=== PATIENT | female | born 1945 | race Caucasian/White ===

== ENCOUNTER → 2016-09-19 | Outpatient (CLI) | payer MEDICARE ==
[2005-10-23 09:00] VITALS: TEMP 99
[~2016-09-19] MED LIST: CALCIUM + D 5001 TAB PO; LOPRESSOR50 MG PO; MAXALT MLT5 MG PO; MUCINEX 60600 MG/TA1 PO; MULTI VITAMIN; SINGULAIR10 MG PO; VYTORIN 10 MG-21 TAB PO; ZYRTEC10 MG PO
== END ==
LOC: MC.RAD 10:27
DX: Z12.31 Encounter for screening mammogram for malignant neoplasm of breast (principal)

== ENCOUNTER → 2016-10-28 | Outpatient (CLI) | payer MEDICARE ==
[2005-10-23 09:00] VITALS: TEMP 99
== END ==
LOC: COL.VAS 09:39
DX: R07.9 Chest pain, unspecified (principal)

== ENCOUNTER → 2017-04-08 | Outpatient (CLI) | payer MEDICARE ==
[2005-10-23 09:00] VITALS: TEMP 99
== END ==
LOC: COL.RAD 08:00
DX: K44.9 Diaphragmatic hernia without obstruction or gangrene (principal); K21.9 Gastro-esophageal reflux disease without esophagitis

== ENCOUNTER → 2017-12-15 | Outpatient (CLI) | payer MEDICARE ==
[2005-10-23 09:00] VITALS: TEMP 99
== END ==
LOC: MC.RAD 13:20
DX: Z12.31 Encounter for screening mammogram for malignant neoplasm of breast (principal)

== ENCOUNTER → 2018-03-10 | Outpatient (CLI) | payer MEDICARE ==
[~2018-03-10] MED LIST changes: -CALCIUM + D 5001 TAB PO; +CALCIUM CARBON650 M2 PO; +CELEXA 20MG20 MG/TAB PO; +CIPRO 500MG TA500 MG PO; +FLAGYL500 MG PO; +MULTI VITAMINS1 TAB PO; +PRIL40 PO; +PROAIR HFA0.09 MG/AC IH; +SINGULAIR 110 MG/TAB PO; -SINGULAIR10 MG PO; +SYNTHROID0.075 MG/T PO; +TRICOR 48MG48 MG PO; +VITAMIN D31000 I1 PO; +ZANTAC 7575 MG PO; +ZETIA 10MG TAB10 MG PO
== END ==
LOC: COL.RAD 16:42
DX: K57.92 Diverticulitis of intestine, part unspecified, without perforation or abscess without bleeding (principal); K50.10 Crohn's disease of large intestine without complications

== ENCOUNTER → 2018-09-02 | Outpatient (CLI) | payer MEDICARE | LOC: COL.RAD 07:53 | DX: K57.30 Diverticulosis of large intestine without perforation or abscess without bleeding (principal); K56.699 Other intestinal obstruction unspecified as to partial versus complete obstruction ==

== ENCOUNTER 2018-10-07 15:47 | Inpatient (IN) | payer MEDICARE ==
[~2018-10-07] VITALS: Ht 154.9 cm; Wt 72.5 kg
[~2018-10-07 15:47] MED LIST changes: +ZYRTEC 10MG10 MG PO; -ZYRTEC10 MG PO
[2018-10-28] VITALS (9 sets, daily range): BP systolic 115–137; BP diastolic 42–76; PULSE 70–95; TEMP 97.8–98.5
[2018-10-28] MEDS ORDERED: CALCIUM 600MG+D1 TAB PO (11:25)
[2018-10-28 11:48] LABS: HEMATOCRIT 44.8 % (37.0-47.0); HEMOGLOBIN 14.8 g/dl (12.5-16.0); MEAN CELL VOLUME 95 fl (80.0-100.0); MEAN CORPUSCULAR HEMOGLOBIN 31 pg (27.0-31.0); MEAN CORPUSCULAR HGB CONC 33 g/dl (33.0-37.0); MEAN PLATELET VOLUME 11.7 fl (7.4-10.4); PLATELET COUNT 256 K/mm3 (130-400); RED BLOOD COUNT 4.71 M/mm3 (4.10-5.30); REDCELL DISTRIBUTION WIDTH-CV 14.2 % (11.5-14.5)
[2018-10-28 11:57] LABS: CALCIUM 9.1 mg/dL (8.4-10.2); CREATININE, serum 0.71 (0.52-1.25); POTASSIUM 4.1 mmol/L (3.4-5.0)
[2018-10-29 00:16] VITALS: BP 132/51; PULSE 86; TEMP 98.1
[2018-10-29 04:36] VITALS: BP 125/55; PULSE 95; TEMP 98.8
[2018-10-29 07:57] LABS: HEMATOCRIT 40.8 % (37.0-47.0); HEMOGLOBIN 13.7 g/dl (12.5-16.0)
[2018-10-29 08:05] VITALS: BP 105/43; PULSE 89; TEMP 99.1
[2018-10-29 08:10] LABS: CALCIUM 8.7 mg/dL (8.4-10.2); CREATININE, serum 0.79 (0.52-1.25); MAGNESIUM 1.9 mg/dL (1.6-2.3); PHOSPHOROUS 3.1 mg/dL (2.5-4.5); POTASSIUM 4.3 mmol/L (3.4-5.0)
[2018-10-29 12:23] VITALS: BP 120/48; PULSE 94; TEMP 98.2
[2018-10-29 15:56] VITALS: BP 111/47; PULSE 87; TEMP 97.4
[2018-10-29 20:47] VITALS: BP 117/48; PULSE 93; TEMP 98.6
[2018-10-30] VITALS (8 sets, daily range): BP systolic 102–136; BP diastolic 42–60; PULSE 71–96; TEMP 98–99.3
[2018-10-31 03:49] VITALS: BP 122/58; PULSE 74; TEMP 98.3
[2018-10-31 09:52] VITALS: BP 150/74; PULSE 73; TEMP 97.8
== END 2018-10-31 11:43 | disposition home or self-care (01) | DRG 330 ==
LOC: SURG 10-28 09:00 → INPTSU 10-28 10:29 → SURG 10-28 10:30 → JCC 10-28 19:31
PROVIDERS: ADMIT Surgery
PROC: 0DTN4ZZ Resection of Sigmoid Colon, Percutaneous Endoscopic Approach (ICD-10-PCS; principal; 2018-10-29)
PROC: 0DNU4ZZ Release Omentum, Percutaneous Endoscopic Approach (ICD-10-PCS; 2018-10-29)
PROC: 0DNW4ZZ Release Peritoneum, Percutaneous Endoscopic Approach (ICD-10-PCS; 2018-10-29)
PROC: 0DNN4ZZ Release Sigmoid Colon, Percutaneous Endoscopic Approach (ICD-10-PCS; 2018-10-29)
DX: K57.32 Diverticulitis of large intestine without perforation or abscess without bleeding (principal); K56.699 Other intestinal obstruction unspecified as to partial versus complete obstruction; E78.00 Pure hypercholesterolemia, unspecified; J45.909 Unspecified asthma, uncomplicated; Z90.710 Acquired absence of both cervix and uterus; Z88.2 Allergy status to sulfonamides; Z88.9 Allergy status to unspecified drugs, medicaments and biological substances
CPT/HCPCS: A4314; A9284; J0690; J1100; J1650; J1885; J2250; J2370; J2405; J2543; J2550; J2704; J7120

== ENCOUNTER → 2018-12-28 | Outpatient (CLI) | payer MEDICARE ==
[~2018-12-28] MED LIST changes: +CALCIUM 600MG+D1 TAB PO
== END ==
LOC: MC.RAD 10:10
DX: Z12.31 Encounter for screening mammogram for malignant neoplasm of breast (principal)

== ENCOUNTER 2019-12-28 09:58 | Outpatient (CLI) | payer MEDICARE | END 2019-12-29 | LOC: COL.RAD | DX: K82.8 Other specified diseases of gallbladder (principal) | CPT/HCPCS: A9537; J2805 ==

== ENCOUNTER → 2019-12-30 | Outpatient (CLI) | payer MEDICARE | LOC: MC.RAD 13:39 | DX: Z12.31 Encounter for screening mammogram for malignant neoplasm of breast (principal) ==

== ENCOUNTER 2020-01-14 05:37 | Day surgery (SDC) | payer MEDICARE ==
[~2020-01-14] VITALS: Ht 154.9 cm; Wt 73.0 kg
[~2020-01-14 05:37] MED LIST changes: +BENADRYL25 M2 PO; -MAXALT MLT5 MG PO; +MAXALT10 MG PO; -MULTI VITAMINS1 TAB PO; +ONE-A-DAY ESSE1 EACH PO; -ZYRTEC 10MG10 MG PO
[2020-01-14] MEDS ORDERED: PROTONIX 40MG T40 MG PO (06:21)
[2020-01-14] MEDS ORDERED: TRICOR 48MG48 MG PO (06:21)
[2020-01-14] MEDS ORDERED: NORCO 325 MG-51 TAB PO (06:22)
[2020-01-14] MEDS ORDERED: PHARMASSURE ZIN50 MG PO (06:23)
[2020-01-14 06:43] VITALS: BP 139/59; PULSE 74; TEMP 97.1
[2020-01-14 09:35] VITALS: BP 132/82; PULSE 90; TEMP 98.4
--- NOTE | 2020-01-14 09:35 | NUR ---
Patient arrives back from PACU at this time. Patient is drowsy, denies pain or nausea. Patient monitor applied, vitals stable. Patient has 4 incision sites across upper abdomen. Oxygen intact, IV infusing. Patient resting comfortably on cart with spouse at bedside.
[2020-01-14 09:45] VITALS: BP 132/57; PULSE 80
--- NOTE | 2020-01-14 09:50 | NUR ---
Patient starting to wake up more and reports that her throat feels sore. Patient given ice chips.
[2020-01-14 10:00] VITALS: BP 120/50; PULSE 77
--- NOTE | 2020-01-14 10:15 | NUR ---
Patient resting on cart comfortably. Patient given crackers and water.
[2020-01-14 10:30] VITALS: BP 130/51; PULSE 79
--- NOTE | 2020-01-14 10:50 | NUR ---
Patient reports slight pain in her abdomen. Patient offered a PRN pain pill medications and she reports she would like to take one.
--- NOTE | 2020-01-14 11:10 | NUR ---
Patient up to restroom at this time and is able to urinate without any complications.
--- NOTE | 2020-01-14 11:15 | NUR ---
Patient reports pain is much better/tolerable and thanks staff for all their services.
--- NOTE | 2020-01-14 11:20 | NUR ---
Patient discharged to patient enterance via wheelchair to private vehicle that her is driving. Patient and spouse leave thanking staff for services!
== END 2020-01-14 11:20 | disposition home or self-care (01) ==
LOC: SDCO
DX: K81.1 Chronic cholecystitis (principal); J45.909 Unspecified asthma, uncomplicated; E78.00 Pure hypercholesterolemia, unspecified; E03.9 Hypothyroidism, unspecified; R32 Unspecified urinary incontinence; G43.909 Migraine, unspecified, not intractable, without status migrainosus; F32.9 Major depressive disorder, single episode, unspecified; M79.7 Fibromyalgia; Z90.49 Acquired absence of other specified parts of digestive tract; Z20.828 Contact with and (suspected) exposure to other viral communicable diseases; Z86.19 Personal history of other infectious and parasitic diseases; Z87.19 Personal history of other diseases of the digestive system; Z80.3 Family history of malignant neoplasm of breast; Z83.3 Family history of diabetes mellitus; Z82.49 Family history of ischemic heart disease and other diseases of the circulatory system; Z79.899 Other long term (current) drug therapy; Z88.2 Allergy status to sulfonamides; Z88.8 Allergy status to other drugs, medicaments and biological substances; Z91.041 Radiographic dye allergy status; Z91.040 Latex allergy status
CPT/HCPCS: J0690; J1100; J2405; J2704; J2710; J3010; J7120

== ENCOUNTER → 2021-09-10 | Outpatient (CLI) | payer MEDICARE ==
[~2021-09-10] MED LIST changes: +NORCO 325 MG-51 TAB PO; +PHARMASSURE ZIN50 MG PO; +PROTONIX 40MG T40 MG PO
== END ==
LOC: MC.RAD 10:52
DX: Z12.31 Encounter for screening mammogram for malignant neoplasm of breast (principal); N64.89 Other specified disorders of breast

== ENCOUNTER → 2021-09-14 | Outpatient (CLI) | payer MEDICARE | LOC: MC.RAD 10:58 | DX: N63.22 Unspecified lump in the left breast, upper inner quadrant (principal) ==

== ENCOUNTER → 2021-09-19 | Outpatient (CLI) | payer MEDICARE | LOC: MC.RAD 09:49 | DX: N63.20 Unspecified lump in the left breast, unspecified quadrant (principal) ==

== ENCOUNTER → 2021-11-01 | Outpatient (CLI) | payer MEDICARE | LOC: COL.RAD 10:42 | DX: R22.1 Localized swelling, mass and lump, neck (principal) ==

== ENCOUNTER → 2021-11-22 | Outpatient (CLI) | payer MEDICARE | LOC: COL.RAD 13:00 | DX: R22.1 Localized swelling, mass and lump, neck (principal) ==

== ENCOUNTER 2021-12-06 15:04 | Emergency (ER) | payer MEDICARE ==
[~2021-12-06] VITALS: Ht 154.9 cm; Wt 71.8 kg
[2021-12-06 15:13] VITALS: TEMP 97.2
[2021-12-06 15:56] LABS: BASO # 0.1 K/mm3 (0.0-0.2); BASO % 1.1 % (0.0-2.0); EOS # 0.1 K/mm3 (0.0-0.7); EOS % 2.6 % (0.0-4.0); GRAN # 4.2 K/mm3 (1.4-6.5); GRAN % 78.1 % (42.2-75.2); HEMATOCRIT 46.2 % (37.0-47.0); HEMOGLOBIN 15.1 g/dl (12.5-16.0); LYMPH # 0.5 K/mm3 (1.2-3.4); LYMPH % 9.7 % (20.0-51.0); MEAN CELL VOLUME 92 fl (80.0-100.0); MEAN CORPUSCULAR HEMOGLOBIN 30 pg (27-31); MEAN CORPUSCULAR HGB CONC 33 g/dl (33.0-37.0); MEAN PLATELET VOLUME 11.8 fl (7.4-10.4); MONO # 0.4 K/mm3 (0.1-0.6); MONO % 7.4 % (1.7-9.3); PLATELET COUNT 334 K/mm3 (130-400); REDCELL DISTRIBUTION WIDTH-CV 14.9 % (11.5-14.5)
[2021-12-06 16:11] LABS: ALANINE AMINOTRANSFERASE 21 U/L (0-55); ALBUMIN 3.8 gm/dL (3.4-4.8); ALKALINE PHOSPHATASE 64 U/L (40-150); ANION GAP 11 mmol/L (7-16); AST,SGOT 30 U/L (5-34); BILIRUBIN,TOTAL 0.5 mg/dL (0.2-1.2); BLOOD UREA NITROGEN 13 mg/dL (10-20); CARBON DIOXIDE 22 mmol/L (23-31); CHLORIDE 106 mmol/L (98-107); CREATININE, serum 0.94 mg/dL (0.57-1.11); GLUCOSE 96 mg/dL (70-99); LIPASE 19 U/L (8-78); POTASSIUM 4.6 mmol/L (3.5-4.5); SODIUM 139 mmol/L (136-145); TOTAL PROTEIN 6.8 gm/dL (6.2-8.1)
[2021-12-06 16:17] LABS: TROPONIN-I < 0.010 ng/mL (0.00-0.033)
[2021-12-06 19:16] VITALS: BP 158/74; PULSE 86
== END 2021-12-06 19:18 | disposition home or self-care (01) ==
LOC: COL.ER 15:04
PROVIDERS: Emergency Medicine
DX: R07.89 Other chest pain (principal); R10.12 Left upper quadrant pain; R10.13 Epigastric pain; Z86.19 Personal history of other infectious and parasitic diseases; Z28.310 Unvaccinated for COVID-19
CPT/HCPCS: C9113

== ENCOUNTER → 2024-02-23 | Outpatient (CLI) | payer MEDICARE ==
[~2024-02-23] MED LIST changes: +Iohexol 300 - 100 ML VIAL IV ONE; +NS 100 ML IV SCH
[2024-02-23 10:42] LABS: COLLECTION METHOD CLEAN CATCH
[2024-02-23 10:56] LABS: PH 5.5 (5.0-8.5); URINE APPEARANCE CLEAR (CLEAR/HAZY); URINE BLOOD NEGATIVE (NEGATIVE); URINE COLOR Dark Yellow (YELLOW); URINE GLUCOSE NEGATIVE (NEGATIVE); URINE KETONE NEGATIVE (NEGATIVE); URINE NITRATE NEGATIVE (NEGATIVE); URINE PROTEIN(semi-quant) NEGATIVE (NEGATIVE)
[2024-02-23 11:18] LABS: HEMATOCRIT 45.1 % (37.0-47.0); HEMOGLOBIN 13.8 g/dl (12.5-16.0); MEAN CELL VOLUME 75 fl (80.0-100.0); MEAN CORPUSCULAR HEMOGLOBIN 23 pg (27-31); MEAN CORPUSCULAR HGB CONC 31 g/dl (33.0-37.0); PLATELET COUNT 367 K/mm3 (130-400); REDCELL DISTRIBUTION WIDTH-CV 20.7 % (11.5-14.5)
[2024-02-23 11:29] LABS: BASO # 0.1 K/mm3 (0.0-0.2); BASO % 0.9 % (0.0-2.0); EOS # 0.3 K/mm3 (0.0-0.7); EOS % 2.5 % (0.0-4.0); GRAN # 8.7 K/mm3 (1.4-6.5); GRAN % 79.4 % (42.2-75.2); LYMPH # 1.2 K/mm3 (1.2-3.4); LYMPH % 11.2 % (20.0-51.0); MONO # 0.5 K/mm3 (0.1-0.6); MONO % 4.7 % (1.7-9.3)
[2024-02-23 11:39] LABS: ALBUMIN 3.8 g/dL (3.4-4.8); BILIRUBIN,TOTAL 0.8 mg/dL (0.2-1.2); CALCIUM 9.5 mg/dL (8.4-10.2); CREATININE, serum 0.87 mg/dL (0.57-1.11); POTASSIUM 4.1 mEq/L (3.5-4.5); TOTAL PROTEIN 7.3 g/dl (6.2-8.1)
== END ==
LOC: COL.RAD 10:05
PROVIDERS: Physician Assistant Medical
DX: K85.90 Acute pancreatitis without necrosis or infection, unspecified (principal); Z87.19 Personal history of other diseases of the digestive system; Z90.49 Acquired absence of other specified parts of digestive tract
CPT/HCPCS: Q9967